=== PATIENT | male | born 1990 | race Two or more races ===

== ENCOUNTER 2017-09-07 18:33 | Inpatient (IN) | payer MEDICAID ==
[~2017-09-07] VITALS: Ht 165.1 cm; Wt 117.5 kg
[~2017-09-07 18:33] MED LIST: CLIN1CAP4 PO; FLUC200T35 PO; HYDR-4683 PO; INSUINJ37 SC; LEVO500T21 PO; METR500T PO; SACC250C PO
[2017-09-07] MEDS ORDERED: SODIUM CHLORIDE 0.9% 1,000 ML IV ONE (22:41)
[2017-09-07 23:12] LABS: Basophils # (auto) 0.1 uL; Basophils % (auto) 1.1 % (0.0-2.0); Eosinophils # (auto) 0.3 uL; Eosinophils % (auto) 2.4 % (0.0-7.0); Hematocrit 46.3 % (41.0-53.0); Hemoglobin 15.7 g/dL (13.5-17.5); Lymphocytes # (auto) 2.8 uL; Lymphocytes % (auto) 23.1 % (10.0-50.0); Mean Corpuscular Hemoglobin 28.6 pg (28.0-32.0); Mean Corpuscular Hgb Conc. 33.9 g/dL (32.0-36.0); Mean Corpuscular Volume 84.4 fL (80.0-100.0); Mean Platelet Volume 9.7 fL (6.9-10.8); Monocytes # (auto) 0.7 uL; Monocytes % (auto) 5.9 % (0.0-12.0); Neutrophils # (auto) 8.2 uL; Neutrophils % (auto) 67.5 % (37.0-80.0); Nucleated Red Blood Cells % 0.1 %; Platelet Count (auto) 317 10^3/uL (140-450); Red Cell Distribution Width 14.1 % (11.8-14.3); White Blood Cell 12.1 10^3/uL (4.4-10.8)
[2017-09-07 23:21] LABS: Albumin 3.7 g/dL (3.4-5.0); BUN/Creatinine Ratio 23.3; Calcium 9.3 mg/dL (8.5-10.1); INR 0.95 (0.9-1.15); Magnesium 1.9 mg/dL (1.6-2.6); Partial Thromboplastin Time 28.5 sec (22.64-33.71); Prothrombin Time 10.4 sec (9.37-12.3)
[2017-09-07 23:24] LABS: Bilirubin, Total 0.2 mg/dL (0.2-1.0); Total Protein 8.3 g/dL (6.4-8.2)
[2017-09-08] MEDS ORDERED: HYDROcodone-ACET 5/325MG TAB PO PRN
[2017-09-08] MEDS ORDERED: MORPHINE SULF INJ 2 MG/ML SYRINGE 1ML IV PRN
[2017-09-08] MEDS ORDERED: TEMAZEPAM 15 MG CAP PO PRN
[2017-09-08] MEDS ORDERED: ONDANSETRON HCL 4 MG/2 ML VIAL IV PRN
[2017-09-08] MEDS ORDERED: DEXTROSE (50%) 50ML SYRG IV PRN
[2017-09-08] MEDS ORDERED: ACETAMINOPHEN 325 MG TAB PO PRN
[2017-09-08] MEDS ORDERED: HYDROcodone-ACET 5/325MG TAB ONE (00:04)
[2017-09-08] MEDS: ACCU-CHEK COMFORT CURVE STRIP VI SCH ×5 (00:28→23:46)
[2017-09-08] MEDS: SODIUM CHLORIDE 0.9% 1,000 ML IV SCH ×2 (00:37→12:19)
[2017-09-08] MEDS: InsuLIN REG 1unit/0.01ml Soln (100units/ml) SC SCH ×5 (00:37→23:46)
[2017-09-08] MEDS: CLINDAMYCIN 600MG IV 50 ML IV SCH ×3 (00:37→17:38)
[2017-09-08 07:01] LABS: Basophils # (auto) 0.1 uL; Basophils % (auto) 0.8 % (0.0-2.0); Eosinophils # (auto) 0.3 uL; Eosinophils % (auto) 2.9 % (0.0-7.0); Hematocrit 41.2 % (41.0-53.0); Hemoglobin 14.2 g/dL (13.5-17.5); Lymphocytes # (auto) 2.2 uL; Lymphocytes % (auto) 23.7 % (10.0-50.0); Mean Corpuscular Hemoglobin 29.1 pg (28.0-32.0); Mean Corpuscular Hgb Conc. 34.6 g/dL (32.0-36.0); Mean Corpuscular Volume 84.1 fL (80.0-100.0); Mean Platelet Volume 9.7 fL (6.9-10.8); Monocytes # (auto) 0.8 uL; Monocytes % (auto) 8.1 % (0.0-12.0); Neutrophils # (auto) 6.1 uL; Neutrophils % (auto) 64.5 % (37.0-80.0); Nucleated Red Blood Cells % 0.1 %; Platelet Count (auto) 250 10^3/uL (140-450); Red Cell Distribution Width 14.6 % (11.8-14.3); White Blood Cell 9.5 10^3/uL (4.4-10.8)
[2017-09-08 07:20] LABS: Albumin 3.1 g/dL (3.4-5.0); BUN/Creatinine Ratio 37.3; Bilirubin, Total 0.2 mg/dL (0.2-1.0); Calcium 8.5 mg/dL (8.5-10.1); Potassium 3.7 mmol/L (3.5-5.1)
[2017-09-08 08:00] VITALS: BP 142/78
[2017-09-08 09:16] VITALS: BP 142/78
[2017-09-08] MEDS ORDERED: INSLANTI SC (09:39)
[2017-09-08] MEDS: FAMOTIDINE 20 MG TAB PO SCH ×2 (10:07→21:09)
[2017-09-08 12:50] VITALS: BP 121/81
[2017-09-08] MEDS ORDERED: NEOMYCIN-BACITRACIN-POLYM 15GM TOP OINT TOP ONE (16:08)
[2017-09-08] MEDS ORDERED: ceFAZolin 1GM VL ONE (16:08)
[2017-09-08] MEDS ORDERED: BUPIVACAINE 0.75% INJ 10ML MPV SDV IJ ONE (16:08)
[2017-09-08] MEDS ORDERED: fentaNYL CITRATE 100 MCG/2 ML VL ONE (16:46)
[2017-09-08] MEDS ORDERED: ONDANSETRON HCL 4 MG/2 ML VIAL ONE (16:47)
[2017-09-08] MEDS ORDERED: PROPOFOL 10 MG/ML 20 ML IV ONE (16:47)
[2017-09-08] MEDS ORDERED: MIDAZOLAM HCL 1MG/1ML-2 ML VIAL ONE (16:47)
[2017-09-08] MEDS ORDERED: SODIUM CHLORIDE LOCK 10 ML ONE (16:47)
[2017-09-08] MEDS ORDERED: HYDROmorphone HCL 2 MG/ML VL IV PRN (17:00)
[2017-09-08] MEDS ORDERED: ACCU-CHEK COMFORT CURVE STRIP VI ONE (17:00)
[2017-09-08] MEDS ORDERED: METOCLOPRAMIDE HCL 5MG/ml INJ 2ml VIAL IV ONE (17:00)
[2017-09-08 20:30] VITALS: BP 131/87
[2017-09-08 22:29] VITALS: BP 131/87
[2017-09-09] MEDS: SODIUM CHLORIDE 0.9% 1,000 ML IV SCH (00:49)
[2017-09-09] MEDS: CLINDAMYCIN 600MG IV 50 ML IV SCH ×2 (01:00→09:39)
[2017-09-09 05:20] VITALS: BP 118/81
[2017-09-09] MEDS: InsuLIN REG 1unit/0.01ml Soln (100units/ml) SC SCH ×2 (06:00→12:00)
[2017-09-09] MEDS: ACCU-CHEK COMFORT CURVE STRIP VI SCH ×2 (06:16→11:52)
[2017-09-09 06:45] LABS: Eosinophils # (auto) 0.3 uL; Nucleated Red Blood Cells % 0.1 %; Platelet Count (auto) 249 10^3/uL (140-450)
[2017-09-09 07:01] LABS: Basophils # (auto) 0.1 uL; Basophils % (auto) 0.9 % (0.0-2.0); Hemoglobin 15.1 g/dL (13.5-17.5); Lymphocytes # (auto) 2.1 uL; Lymphocytes % (auto) 26.4 % (10.0-50.0); Mean Corpuscular Hemoglobin 28.6 pg (28.0-32.0); Mean Corpuscular Hgb Conc. 32.1 g/dL (32.0-36.0); Mean Platelet Volume 9.6 fL (6.9-10.8); Monocytes # (auto) 0.6 uL; Monocytes % (auto) 7.9 % (0.0-12.0); Neutrophils # (auto) 4.8 uL; Neutrophils % (auto) 60.8 % (37.0-80.0); Red Cell Distribution Width 14.8 % (11.8-14.3); White Blood Cell 7.9 10^3/uL (4.4-10.8)
[2017-09-09 07:16] LABS: BUN/Creatinine Ratio 21.2; Calcium 8.6 mg/dL (8.5-10.1); Potassium 4.3 mmol/L (3.5-5.1)
[2017-09-09 08:47] VITALS: BP 105/74
[2017-09-09] MEDS: FAMOTIDINE 20 MG TAB PO SCH (09:38)
[2017-09-09 12:53] VITALS: BP 125/75
[2017-09-09 12:57] VITALS: BP 125/75
== END 2017-09-09 13:42 | disposition home or self-care (01) | DRG 361 ==
LOC: ER 18:37 → OVERFLOW 18:38 → WEST WING 09-08 07:53
PROVIDERS: ADMIT Nurse Practitioner; ATTEND Internal Medicine
PROC: 0HRNXK3 Replacement of Left Foot Skin with Nonautologous Tissue Substitute, Full Thickness, External Approach (ICD-10-PCS; principal; 2017-09-08 16:14)
DX: E11.621 Type 2 diabetes mellitus with foot ulcer (principal); L97.529 Non-pressure chronic ulcer of other part of left foot with unspecified severity; E44.0 Moderate protein-calorie malnutrition; E11.65 Type 2 diabetes mellitus with hyperglycemia; Z68.41 Body mass index [BMI] 40.0-44.9, adult; E66.01 Morbid (severe) obesity due to excess calories; G47.00 Insomnia, unspecified; I10 Essential (primary) hypertension; Z82.3 Family history of stroke; Z82.49 Family history of ischemic heart disease and other diseases of the circulatory system; Z89.422 Acquired absence of other left toe(s); Z79.899 Other long term (current) drug therapy; Z79.4 Long term (current) use of insulin
CPT/HCPCS: 36415; 71010; 73620; 80048; 80053; 82962; 83735; 85025; 85610; 85730; 87070; 87075; 87076; 87077; 87081; 87186; 87205; 93005; 96361; 96365; J0690; J1815; J2250; J2405; J2704; J3490

== ENCOUNTER 2018-11-24 19:16 | Emergency (ER) | payer MEDICAID ==
[~2018-11-24] VITALS: Ht 165.1 cm; Wt 139.3 kg
[~2018-11-24 19:16] MED LIST changes: -FLUC200T35 PO; +INSLANTI SC; -INSUINJ37 SC; -LEVO500T21 PO; -METR500T PO; -SACC250C PO
[2018-11-24 20:30] VITALS: BP 130/88
[2018-11-24 21:30] LABS: Basophils # (auto) 0.1 uL; Basophils % (auto) 0.7 % (0.0-2.0); Eosinophils # (auto) 0.2 uL; Eosinophils % (auto) 2.3 % (0.0-7.0); Hematocrit 48.3 % (41.0-53.0); Hemoglobin 15.9 g/dL (13.5-17.5); Lymphocytes # (auto) 1.6 uL; Lymphocytes % (auto) 16.2 % (10.0-50.0); Mean Corpuscular Hemoglobin 28.3 pg (28.0-32.0); Mean Corpuscular Hgb Conc. 32.8 g/dL (32.0-36.0); Mean Corpuscular Volume 86.2 fL (80.0-100.0); Monocytes # (auto) 0.5 uL; Monocytes % (auto) 5.3 % (0.0-12.0); Neutrophils # (auto) 7.3 uL; Neutrophils % (auto) 75.5 % (37.0-80.0); Nucleated Red Blood Cells % 0.1 %; Platelet Count (auto) 289 10^3/uL (140-450); Red Blood Cells 5.61 10^6/uL (4.5-5.90); Red Cell Distribution Width 12.9 % (11.8-14.3); White Blood Cell 9.7 10^3/uL (4.4-10.8)
[2018-11-24 21:45] LABS: Albumin 3.7 g/dL (3.4-5.0); Calcium 8.7 mg/dL (8.5-10.1); Potassium 4.2 mmol/L (3.5-5.1)
[2018-11-24 21:48] LABS: Bilirubin, Total 0.3 mg/dL (0.2-1.0); Total Protein 8.2 g/dL (6.4-8.2)
== END 2018-11-25 04:57 | disposition home or self-care (01) ==
LOC: ER 19:16
DX: S92.324A Nondisplaced fracture of second metatarsal bone, right foot, initial encounter for closed fracture (principal); E11.9 Type 2 diabetes mellitus without complications; W19.XXXA Unspecified fall, initial encounter; Y93.89 Activity, other specified; Y99.8 Other external cause status; Y92.89 Other specified places as the place of occurrence of the external cause
CPT/HCPCS: 36415; 73700; 80053; 83605; 85025; 87040